=== PATIENT | male | born 1985 | race Caucasian/White ===

== ENCOUNTER 2019-04-10 11:48 | Emergency (ER) | payer SELFPAY ==
[2019-04-10] MEDS ORDERED: IBUPROFEN 600 MG TABLET PO ONE (12:50)
--- NOTE | 2019-04-10 13:12 | RADIOLOGY REPORT (SQ) ---
EXAM DESCRIPTION: WRIST LEFT 3 VIEWS COMPLETED DATE/TIME: 04/10/2019 1:03 pm REASON FOR STUDY: hit hand on concrete/bruising noted. COMPARISON: None. NUMBER OF VIEWS: Three views. TECHNIQUE: AP, lateral, and oblique radiographic images acquired of the left wrist. LIMITATIONS: None. FINDINGS: MINERALIZATION: Normal. BONES: Fracture of the distal 5th metacarpal with volar angulation. SOFT TISSUES: Mild soft tissue swelling. 1.5 mm radiopaque object in the soft tissues between the th umb and 2nd finger. OTHER: No other significant finding. IMPRESSION: 1. FRACTURE OF THE DISTAL 5TH METACARPAL. MILD SOFT TISSUE SWELLING. 2. SMALL 1.5 MM RADIOPAQUE FOREIGN OBJECT IN THE SOFT TISSUES BETWEEN THE THUMB AND 2ND FINGER. TECHNICAL DOCUMENTATION: JOB ID: [id number] [employer]- All Rights Reserved Reading location - IP/workstation name: [email or web address]
--- NOTE | 2019-04-10 13:47 | ER Document Report ---
HPI - HPI Time Seen by Provider: 04/10/19 12:50 Pain Level: 4 Notes: Patient is an otherwise healthy 33-year-old male presenting to the emergency department with complaints of left hand pain. Patient reports approximately 3 days ago he was helping a friend when his friend fell to the ground crushing his own hand onto concrete in between the concrete and the weight of his friend. - CONSTITUTIONAL Constitutional: DENIES: Fever, Chills - NEURO Neurology: DENIES: Headache - MUSCULOSKELETAL Musculoskeletal: REPORTS: Extremity pain Past Medical History - General Information source: Patient - Social History Smoking Status: Current Every Day Smoker Chew tobacco use (# tins/day): No Frequency of alcohol use: Occasional Drug Abuse: None Family History: Reviewed & Not Pertinent Patient has suicidal ideation: No Patient has homicidal ideation: No - Medical History Medical History: Negative Renal/ Medical History: Denies: Hx Peritoneal Dialysis Surgical Hx: Negative - Immunizations Immunizations up to date: Yes Vertical Provider Document - CONSTITUTIONAL Notes: PHYSICAL EXAMINATION: GENERAL: Well-appearing, well-nourished and in no acute distress. HEAD: Atraumatic, normocephalic. EYES: Pupils equal round extraocular movements intact, conjunctiva are normal. ENT: Nares patent NECK: Normal range of motion LUNGS: No respiratory distress Musculoskeletal: Normal range of motion, swelling and ecchymosis noted to left hands, specifically over the fifth metacarpal. No snuffbox tenderness, strong radial pulse, cap refill less than 3 seconds. NEUROLOGICAL: Normal speech, normal gait. PSYCH: Normal mood, normal affect. SKIN: Warm, Dry, normal turgor, no rashes or lesions noted. Course - Re-evaluation Re-evalutation: Left fifth metacarpal fracture noted. Patient will be placed in a splint, he will be referred to orthopedics. Patient verbalizes understanding and agreement with DC instructions. - Vital Signs Vital signs: Temp Pulse Resp BP Pulse Ox 98.8 F 112 H 16 130/78 H 97 04/10/19 12:00 04/10/19 12:00 04/10/19 12:00 04/10/19 12:00 04/10/19 12:00 Procedures - Immobilization Left hand Pre-Proc Neuro Vasc Exam: Normal Immobilizer type: Ulnar Performed by: PCT Post-Proc Neuro Vasc Exam: Normal Alignment checked and good: Yes Discharge - Discharge Clinical Impression: Fracture of metacarpal bone of left hand Condition: Stable Disposition: HOME, SELF-CARE Additional Instructions: Fractured Fifth Metacarpal (Boxer's) You have a fracture of the fifth metacarpal bone in the hand, often called a Boxer's Fracture. The fracture is usually caused by striking the knuckle against a hard surface -- such as hitting a wall with the fist. This fracture heals well. Some degree of angle in the fracture is perfectly acceptable, resulting in only a slightly rounder knuckle. Your physician has determined whether your fracture could benefit from "setting", and has outlined a treatment plan for you. The usual treatment is splinting for four to six weeks -- a cast is not usually necessary. At first, the injury should be elevated and ice packed. Contact the doctor at once if swelling or pain becomes severe, or if numbness develops. Ice & Elevation Apply ice packs frequently against the painful area. Many different schedules are recommended, such as "20 minutes on, 20 minutes off" or "one hour ice, two hours rest." If you need to work, you may need to go longer between ice treatments. You should plan to have the area ice packed AT LEAST one-fourth of the time. The ice should be applied over the wrap, tape, or splint, or over a layer of cloth -- not directly against the skin. Some ice bags have a built-in cloth and can be put directly on the skin. Your injured part should be elevated as much as possible over the next 48 hours. Try to keep the injury above the level of the heart. Avoid use of the injured area. Elevation and rest will decrease the swelling. Please take ibuprofen 600 mg every 6 hours for pain and inflammation. Ice and elevate as outlined above. Follow-up with orthopedics. Call them Saturday to schedule an appointment.
[2019-04-10 13:58] VITALS: BP 139/79
== END 2019-04-10 13:59 | disposition home or self-care (01) ==
LOC: ER 11:48
DX: S62.307A Unspecified fracture of fifth metacarpal bone, left hand, initial encounter for closed fracture (principal); M79.642 Pain in left hand; W23.1XXA Caught, crushed, jammed, or pinched between stationary objects, initial encounter; F17.200 Nicotine dependence, unspecified, uncomplicated
CPT/HCPCS: 99283